=== PATIENT | female | born 1980 | race Caucasian/White ===

== ENCOUNTER → 2020-12-14 | Outpatient (CLI) | payer OTHER ==
--- NOTE | 2020-12-16 11:02 | MM ---
Reason for exam: screening (asymptomatic). Last mammogram was performed 5 years and 1 month ago. History: Patient has history of other cancer at age 33 and had first child after 30. Took hormonal contraceptives for 16 years beginning at age 18. Took progesterone beginning at age 39. Physical Findings: A clinical breast exam by your physician is recommended on an annual basis and results should be correlated with mammographic findings. MG Screening Mammo w CAD Bilateral CC and MLO view(s) were taken. Prior study comparison: November 03, 2015, bilateral MG screening mammo w CAD. The breast tissue is heterogeneously dense. This may lower the sensitivity of mammography. No significant changes when compared with prior studies. ASSESSMENT: Negative, BI-RAD 1 RECOMMENDATION: Routine screening mammogram of both breasts in 1 year.
== END | disposition home or self-care (01) ==
LOC: RADMAMWWP 13:33
PROVIDERS: ATTEND Obstetrics & Gynecology
DX: Z12.31 Encounter for screening mammogram for malignant neoplasm of breast (principal)
CPT/HCPCS: 77067

== ENCOUNTER 2021-08-09 11:08 | Emergency (ER) | payer OTHER ==
[2021-08-09 11:27] VITALS: RESP 16
[2021-08-09] MEDS ORDERED: diphenhydrAMINE 50 MG/ML 1 ML VIAL IM STA (12:30)
[2021-08-09] MEDS ORDERED: methylPREDNISolone SOD SUCCI 125 MG/2 ML VIAL IM ONE (12:30)
--- NOTE | 2021-08-09 13:08 | CT ---
EXAMINATION TYPE: CT facial bones wo con DATE OF EXAM: 08/09/2021 COMPARISON: 07/30/2014 HISTORY: Lt side facial swelling CT DLP: 375.4 mGycm Automated exposure control for dose reduction was used. TECHNIQUE: CT scan of the sinuses is performed without contrast, axial images are obtained, coronal r eformatted images are also reviewed. FINDINGS: Extensive postsurgical change involving the sinuses. There is extensive soft tissue attenuation involving the ethmoid air cells and bilateral maxillary si nus. Hypoaeration of the frontal sinus noted. Abnormal attenuation residual sphenoid sinus also noted compatible with sinusitis. No air-fluid levels. Some of the upper teeth encroach upon the lower greg in the maxillary sinuses bilaterally. Correlate clinically. Dental artifact limits the exam. There are 2 small metallic density seen adjacent to the lateral greg in of the nasopharynx be related to previous surgery and metallic. Foreign body not excluded correlat e surgical. Mastoid air cells are clear. Lack of contrast limits assessment for abscess. Subcutaneous edema invol ving the left facial structures and left periorbital region incidentally noted. The globes are symmet gee and orbits are intact. Intracranial structures There is adenopathy in the bilateral compartments of the neck, with the largest lymph node measuring 1 cm in the left carotid space axial image 22. Parotid glands are homogeneous in attenuation IMPRESSION: 1. There is a subcutaneous edema along the left facial and periorbital. No intraorbital extension humera ntified. Correlate for cellulitis. 2. There is extensive postsurgical change involving the sinuses with persistent extensive soft tissue attenuation involving the sinuses. Correlate for severe bilateral sinusitis. 3. There are 2 small metallic densities are seen just inferior to the right orbit lateral to the nasa l cavity could be related to prior surgery or represent metallic body correlate with surgical history and clinical. 4. Nonspecific adenopathy seen throughout the compartments of the soft tissue the neck bilaterally co rrelate clinically.
[2021-08-09 13:42] LABS: Basophils % (A) 0 %; Eosinophils # (A) 0.1 k/uL (0-0.7); Eosinophils % (A) 1 %; HCT 35.4 % (34.0-46.0); HGB 12.8 gm/dL (11.4-16.0); Lymphocytes # (A) 2.2 k/uL (1.0-4.8); Lymphocytes % (A) 25 %; MCH 31.8 pg (25.0-35.0); MCHC 36.1 g/dL (31.0-37.0); MCV 87.9 fL (80.0-100.0); Mean Platelet Volume 7.1; Monocytes # (A) 0.5 k/uL (0-1.0); Monocytes % (A) 6 %; Neutrophils # (A) 5.8 k/uL (1.3-7.7); Neutrophils % (A) 66 %; Platelet Count 209 k/uL (150-450); RBC 4.03 m/uL (3.80-5.40); RDW 12.4 % (11.5-15.5); WBC 8.7 k/uL (3.8-10.6)
--- NOTE | 2021-08-09 14:05 | ED ---
ENT HPI - General Chief complaint: ENT Stated complaint: Lt side face swelling Time Seen by Provider: 08/09/21 12:19 Source: patient, RN notes reviewed Mode of arrival: ambulatory Limitations: no limitations - History of Present Illness Initial comments: Patient is a 40-year-old female that presents to emergency department complaining of left-sided facial swelling. She notes that yesterday she got was dental pain that would go away on its own with Tylenol Motrin. She notes that she does have a history of sinus cancer with several facial procedures. She notes that it is very minimally tender and nonerythematous she was just concerned when she woke up this morning with swelling to the left side of her face. She denied any other issues or complaints. She was well-appearing. She was in no apparent distress. She denied chest pain shortness breath headache nausea vomiting diarrhea constipation fever fatigue chills difficulty eating or swallowing or breathing. - Related Data Home Medications Medication Instructions Recorded Confirmed Control Pills 1 tab PO DAILY 08/12/14 09/09/14 Previous Rx's Medication Instructions Recorded predniSONE 50 mg PO DAILY 4 Days tab 09/09/14 Clindamycin HCl 300 mg PO Q6HR #40 cap 08/09/21 Allergies Allergy/AdvReac Type Severity Reaction Status Date / Time hair dye AdvReac Swelling Uncoded 08/09/21 11:24 Review of Systems ROS Statement: Those systems with pertinent positive or pertinent negative responses have been documented in the HPI. ROS Other: All systems not noted in ROS Statement are negative. Past Medical History Additional Past Medical History / Comment(s): NASAL POLYPS History of Any Multi-Drug Resistant Organisms: None Reported Past Surgical History: No Surgical Hx Reported Additional Past Anesthesia/Blood Transfusion Reaction / Comment(s): NO PREVIOUS ANESTHESIA Past Psychological History: No Psychological Hx Reported Smoking Status: Never smoker Past Alcohol Use History: Occasional Past Drug Use History: None Reported General Exam Limitations: no limitations General appearance: alert, in no apparent distress Head exam: Present: atraumatic, normocephalic. Absent: normal inspection (Left- sided facial swelling, nonerythematous, minimally tender.) Eye exam: Present: normal appearance, PERRL, EOMI. Absent: scleral icterus, conjunctival injection, periorbital swelling ENT exam: Present: normal exam, normal oropharynx, mucous membranes moist Neck exam: Present: normal inspection Respiratory exam: Present: normal lung sounds bilaterally. Absent: respiratory distress, wheezes, rales, rhonchi, stridor Cardiovascular Exam: Present: regular rate, normal rhythm, normal heart sounds. Absent: systolic murmur, diastolic murmur, rubs, gallop, clicks Extremities exam: Present: normal inspection, full ROM, normal capillary refill. Absent: tenderness, pedal edema, joint swelling, calf tenderness Neurological exam: Present: alert, oriented X3 Psychiatric exam: Present: normal affect, normal mood Skin exam: Present: warm, dry, intact, normal color. Absent: rash Course Vital Signs 08/09/21 11:25 Temperature 99.7 F H Pulse Rate 80 Respiratory 16 Rate Blood Pressure 152/110 O2 Sat by Pulse 100 Oximetry Medical Decision Making - Medical Decision Making 40-year-old female with left-sided facial swelling. Basic labs, CT of the facial bones ordered. CT shows soft tissue emphysema and swelling consistent with cellulitis and po ssible bilateral sinusitis. Labs unremarkable for elevated white count. Case discussed with Dr. Rodriguez, patient discharge home with antibiotics. Clindamycin will be sent to pharmacy. - Lab Data Result diagrams: 08/09/21 13:07 Lab Results 08/09/21 Range/Units 13:07 WBC 8.7 (3.8-10.6) k/uL RBC 4.03 (3.80-5.40) m/uL Hgb 12.8 (11.4-16.0) gm/dL Hct 35.4 (34.0-46.0) % MCV 87.9 (80.0-100.0) fL MCH 31.8 (25.0-35.0) pg MCHC 36.1 (31.0-37.0) g/dL RDW 12.4 (11.5-15.5) % Plt Count 209 (150-450) k/uL MPV 7.1 Neutrophils % 66 % Lymphocytes % 25 % Monocytes % 6 % Eosinophils % 1 % Basophils % 0 % Neutrophils # 5.8 (1.3-7.7) k/uL Lymphocytes # 2.2 (1.0-4.8) k/uL Monocytes # 0.5 (0-1.0) k/uL Eosinophils # 0.1 (0-0.7) k/uL Basophils # 0.0 (0-0.2) k/uL - Radiology Data Radiology results: report reviewed, image reviewed CT of the facial bones: There is subcutaneous edema along the left facial and periorbital. No intraorbital extension identified: Saline as. There is extensive postsurgical changes involving the sinuses with persistent extensive soft tissue attenuation involving the sinuses. There are 2 small metallic densities are seen just inferior to the right orbit lateral to the nasal cavity could be related to prior surgery present metallic body. Nonspecific adenopathy seen throughout the compartments of the soft tissue Disposition Clinical Impression: Cellulitis, Sinusitis Disposition: HOME SELF-CARE Condition: Stable Instructions (If sedation given, give patient instructions): Cellulitis (ED) Additional Instructions: Please return to the Emergency Department if symptoms worsen or any other concerns. Follow-up with primary care 1-2 days. Take antibiotics as prescribed until complete. Take Tylenol Motrin as needed for fever aches pains Is patient prescribed a controlled substance at d/c from ED?: No Referrals: Dio Townsend MD [Primary Care Provider] - 1-2 days Time of Disposition: 14:08
[2021-08-09 14:35] VITALS: BP 132/78; PULSE 82; TEMP 98
== END 2021-08-09 14:35 | disposition home or self-care (01) ==
LOC: EC 11:08
DX: L03.213 Periorbital cellulitis (principal); J32.9 Chronic sinusitis, unspecified; Z79.52 Long term (current) use of systemic steroids
CPT/HCPCS: 36415; 85025; 70486; 99284; 96372 ×2; J1200; J2930

== ENCOUNTER → 2022-04-10 | Outpatient (CLI) | payer OTHER ==
--- NOTE | 2022-04-12 18:36 | MM ---
Reason for Exam: Screening (asymptomatic). Last mammogram was performed 1 year(s) and 4 month(s) ago. Patient History: Menarche at age 12. Postmenopausal. Other cancer, age 33. Currently using Progesterone, beginning at age 39 for 2 years. Hormonal Contraceptives for 16 years from age 18 until age 34. Risk Values: Lora 5 year model risk: 0.4%. NCI Lifetime model risk: 7.3%. Prior Study Comparison: 11/03/2015 Bilateral Screening Mammogram, [facility]. 12/14/2020 Bilateral Screening Mammogram, [facility]. Tissue Density: The breast tissue is heterogeneously dense. This may lower the sensitivity of mammography. Findings: Analyzed By CAD. Chronic nodularity posterior upper-outer quadrant left breast. Unchanged global asymmetry subareolar left breast. No significant change from prior exams. Overall Assessment: Benign, BI-RAD 2 Management: Screening Mammogram of both breasts in 1 year. 1. Patient should continue monthly self breast exams. 2. This exam should not preclude additional follow-up of suspicious palpable abnormalities. Electronically signed and approved by: Reema Kimble M.D. Radiologist
== END | disposition home or self-care (01) ==
LOC: RADMAMWWP 15:58
PROVIDERS: ATTEND Obstetrics & Gynecology Obstetrics
DX: Z12.31 Encounter for screening mammogram for malignant neoplasm of breast (principal); Z78.0 Asymptomatic menopausal state
CPT/HCPCS: 77067

== ENCOUNTER → 2023-04-17 | Outpatient (CLI) | payer OTHER ==
--- NOTE | 2023-04-18 20:31 | MM ---
Reason for Exam: Screening (asymptomatic). Last screening mammogram was performed 12 month(s) ago. Patient History: Menarche at age 12. Postmenopausal. Currently using Progesterone, beginning at age 39 for 2 years. Hormonal Contraceptives for 16 years from age 18 until age 34. Risk Values: Lora 5 year model risk: 0.5%. NCI Lifetime model risk: 7.2%. Prior Study Comparison: 11/03/2015 Bilateral Screening Mammogram, [facility]. 12/14/2020 Bilateral Screening Mammogram, [facility]. 04/10/2022 Bilateral MG screening mammo w CAD, [facility]. Tissue Density: The breast tissue is heterogeneously dense. This may lower the sensitivity of mammography. Findings: Analyzed By CAD. Unchanged bilateral axillary tail lymph node on the left. Areas of asymmetric density remain unchanged. There is no suspicious group of microcalcifications or new suspicious mass in either breast. Overall Assessment: Benign, BI-RAD 2 Management: Screening Mammogram of both breasts in 1 year. . Patient should continue monthly self-breast exams. A clinical breast exam by your physician is recommended on an annual basis. This exam should not preclude additional follow-up of suspicious palpable abnormalities. Note on Lora scores and lifetime risk: 1. A Lora score greater than 3% is considered moderate risk. If this is the case, consider specialist referral to assess eligibility for a risk reducing agent. 2. If overall lifetime risk for the development of breast cancer is 20% or higher, the patient may qualify for future screening with alternating mammogram and breast MRI. Electronically signed and approved by: Reema Kimble M.D. Radiologist
== END | disposition home or self-care (01) ==
LOC: RADMAMWWP 09:31
PROVIDERS: ATTEND Obstetrics & Gynecology
DX: Z12.31 Encounter for screening mammogram for malignant neoplasm of breast (principal); Z78.0 Asymptomatic menopausal state
CPT/HCPCS: 77067

== ENCOUNTER → 2023-10-01 | Outpatient (CLI) | payer OTHER ==
[2023-10-02 14:22] LABS: APTT 46 Sec(s) (<43); APTT 1:1 Mix 40 Sec(s) (<43); Dilute Russell Viper Venom 35 Sec(s) (<44)
== END | disposition home or self-care (01) ==
LOC: LABWHC1 10:30
PROVIDERS: ATTEND Family Medicine
DX: I10 Essential (primary) hypertension (principal); Z79.899 Other long term (current) drug therapy
CPT/HCPCS: 36415; 82533; 85613; 85730; 86038; 86225